=== PATIENT | male | born 1955 ===

== ENCOUNTER 2020-06-21 06:10 | Inpatient (IN) | payer OTHER ==
[~2020-06-21] VITALS: Ht 172.7 cm; Wt 90.7 kg
[2020-06-21] MEDS ORDERED: BISACODYL5 MG (10:38)
[2020-06-21] MEDS ORDERED: B-12500 MCG (10:38)
[2020-06-22] MEDS ORDERED: AVAPRO150 MG PO (12:29)
[2020-06-23] MEDS ORDERED: ELIQUIS2.5 MG PO (16:01)
[2020-06-23] MEDS ORDERED: DUI500 PO (16:01)
[2020-06-23] MEDS ORDERED: PERCOCET 5-3251 EACH PO (16:01)
== END 2020-06-23 18:10 | DRG 470 ==
LOC: CIR.AMB 06:10 → EDSTATUS 07:30 → CIR.AMB 07:30 → SURH 09:56 → O/R 09:56 → SURH 13:00
PROVIDERS: ADMIT Orthopaedic Surgery; ATTEND Orthopaedic Surgery
PROC: 0SRD0J9 Replacement of Left Knee Joint with Synthetic Substitute, Cemented, Open Approach (ICD-10-PCS; principal; 2020-06-21 07:00)
DX: M17.12 Unilateral primary osteoarthritis, left knee (principal); D62 Acute posthemorrhagic anemia; I10 Essential (primary) hypertension